=== PATIENT | female | born 1955 | race Caucasian/White ===

== ENCOUNTER 2017-04-14 16:35 | Emergency (ER) | payer OTHER ==
[2017-04-14 16:42] VITALS: BP 151/62; PULSE 97; TEMP 98.1; BMI 22.4
[2017-04-14] MEDS ORDERED: RABIES VACCINE (PCEC)/PF 2.5 UNIT/VIAL IM ONE (17:44)
--- NOTE | 2017-04-14 17:56 | PDOC ---
History of Present Illness - General Chief Complaint: Revisit,Rabies Injection Stated Complaint: RABIES SHOT, REVISIT Time Seen by Provider: 04/14/17 17:27 History Source: Patient Exam Limitations: No Limitations - History of Present Illness Initial Comments: 04/14/17 17:35 62 year old female presents for rabies vaccine. S/p dog bite, treated at [facility] 04/08/17, states was alerted by [place] was never told she needed 3 vaccines. Sent here to continue rabies schedule. Denies symptoms presently. Severity: mild Modifying Factors: improves with: immobilization Associated Symptoms: denies: fever/chills, headaches, malaise, nausea/vomiting Aspirin Received prior to arrival: Yes: no aspirin today. No: unknown Asa Contraindications(Core Measure): No: Active Blding w/i 24 hrs. Beta [place] Given by EMS(Core Measure): No Beta [place] Taken at Home(Core Measure): No Beta [place] Not Indicated at this Time(Core Measure): No Past History - Travel Traveled outside of the country in the last 30 days: No Close contact w/someone who was outside of country & ill: No - Past Medical History Allergies/Adverse Reactions: Allergies Allergy/AdvReac Type Severity Reaction Status Date / Time No Known Allergies Allergy Verified 04/14/17 16:42 - Surgical History Appendectomy: Yes - Psycho/Social/Smoking Cessation Hx Suicidal Ideation: No Smoking History: Never smoked Information on smoking cessation initiated: No Review of Systems - Review of Systems Able to Perform ROS?: Yes Is the patient limited Mongolian proficient: No Constitutional: No: Chills, Fever HEENTM: No: Eye Pain, Double Vision, Tinnitus, Throat Swelling, Mouth Pain Respiratory: No: Stridor, Wheezing Cardiac (ROS): No: Chest Pain, Syncope : No: Dysuria, Discharge, Testicular Mass Musculoskeletal: No: Back Pain, Gout Integumentary: No: Change in Color, Lesions Neurological: No: Numbness, Tingling *Physical Exam - Vital Signs Last Vital Signs Temp Pulse Resp BP Pulse Ox 98.1 F 97 H 18 151/62 98 04/14/17 16:38 04/14/17 16:38 04/14/17 16:38 04/14/17 16:38 04/14/17 16:38 - Physical Exam General Appearance: Yes: Nourished. No: Appropriately Dressed, Apparent Distress HEENT: positive: EOMI, LEONEL, TMs Normal, Pharynx Normal Neck: negative: Supple, Lymphadenopathy (R) Respiratory/Chest: positive: Lungs Clear Cardiovascular: positive: Regular Rhythm, Regular Rate, S1, S2 Medical Decision Making - Medical Decision Making 04/14/17 17:57 62 year old female here for rabies vaccine given rabies vaccine today instructed to return for day 7 and day 14 vaccines *DC/Admit/Observation/Transfer Diagnosis at time of Disposition: Dog bite of hand Qualifiers: Encounter type: sequela Laterality: left Qualified Code(s): S61.452S - Open bite of left hand, sequela; W54.0XXS - Bitten by dog, sequela - Discharge Dispostion Disposition: HOME Condition at time of disposition: Good Admit: No - Patient Instructions Printed Discharge Instructions: DI for Rabies Vaccine Additional Instructions: Please return to hospital April 15, and April 22, 2017 for rabies vaccine. Wound care as previously directed
== END 2017-04-14 18:04 | disposition home or self-care (01) ==
LOC: JERFT 16:35
PROC: 3E0234Z Introduction of Serum, Toxoid and Vaccine into Muscle, Percutaneous Approach (ICD-10-PCS; principal; 2017-04-14)
DX: Z23 Encounter for immunization (principal)
CPT/HCPCS: 90675; 99281-25

== ENCOUNTER 2017-04-15 17:08 | Emergency (ER) | payer SELFPAY ==
[2017-04-15 17:12] VITALS: BP 128/75; PULSE 97; TEMP 99; BMI 22.4
[2017-04-15] MEDS ORDERED: RABIES VACCINE (PCEC)/PF 2.5 UNIT/VIAL IM ONE (17:49)
--- NOTE | 2017-04-15 18:02 | PDOC ---
History of Present Illness - General Chief Complaint: Revisit,Rabies Injection Stated Complaint: REVISIT, RABIES VACCINE Time Seen by Provider: 04/15/17 17:33 History Source: Patient Exam Limitations: No Limitations - History of Present Illness Initial Comments: 04/15/17 18:02 62-year-old female presents for her third rabies vaccination. Patient is on day 7 of the schedule. Patient is no complaints presently. Associated Symptoms: reports: denies symptoms Past History - Past Medical History Allergies/Adverse Reactions: Allergies Allergy/AdvReac Type Severity Reaction Status Date / Time No Known Allergies Allergy Verified 04/15/17 17:12 Home Medications: Ambulatory Orders NK [No Known Home Medication] 04/14/17 Other medical history: NONE - Surgical History Appendectomy: Yes - Psycho/Social/Smoking Cessation Hx Suicidal Ideation: No Smoking History: Never smoked Hx Alcohol Use: No Drug/Substance Use Hx: No Substance Use Type: None Patient Lives Alone: No Review of Systems - Review of Systems Able to Perform ROS?: Yes Constitutional: No: Symptoms Reported HEENTM: No: Symptoms Reported Respiratory: No: Symptoms reported Cardiac (ROS): No: Symptoms Reported ABD/GI: No: Symptoms Reported Musculoskeletal: No: Symptoms Reported Integumentary: No: Symptoms Reported Neurological: No: Symptoms reported *Physical Exam - Vital Signs Last Vital Signs Temp Pulse Resp BP Pulse Ox 99.0 F 97 H 20 128/75 98 04/15/17 17:10 04/15/17 17:10 04/15/17 17:10 04/15/17 17:10 04/15/17 17:10 - Physical Exam General Appearance: Yes: Nourished, Appropriately Dressed. No: Apparent Distress Integumentary: positive: Normal Color, Warm, Moist Neurologic: positive: Motor Strength 5/5 (ambulatory) Medical Decision Making - Medical Decision Making 04/15/17 18:11 Patient ordered for third injection of rabies vaccine. Patient given 2.5 mg IM. patient be discharged to return on 04/22 *DC/Admit/Observation/Transfer Diagnosis at time of Disposition: Need for rabies vaccination - Discharge Dispostion Disposition: HOME Condition at time of disposition: Good - Patient Instructions Printed Discharge Instructions: DI for Rabies Vaccine Additional Instructions: Please return in 04/22. Last vaccination for rabies.
== END 2017-04-15 18:24 | disposition home or self-care (01) ==
LOC: JERFT 17:08
PROC: 3E0234Z Introduction of Serum, Toxoid and Vaccine into Muscle, Percutaneous Approach (ICD-10-PCS; principal; 2017-04-15)
DX: Z20.3 Contact with and (suspected) exposure to rabies (principal)
CPT/HCPCS: 90675; 99281-25

== ENCOUNTER 2017-04-22 15:08 | Emergency (ER) | payer SELFPAY ==
[2017-04-22 15:12] VITALS: BP 114/66; PULSE 73; TEMP 98; BMI 21.6
[2017-04-22] MEDS ORDERED: RABIES VACCINE (PCEC)/PF 2.5 UNIT/VIAL IM ONE (15:14)
--- NOTE | 2017-04-22 15:21 | PDOC ---
History of Present Illness - General Chief Complaint: Revisit,Rabies Injection Stated Complaint: FOLLOW-UP Time Seen by Provider: 04/22/17 15:13 Exam Limitations: No Limitations - History of Present Illness Initial Comments: 04/22/17 15:21 Patient here for #4/4 rabies vaccine. Patient states has had no fever or discomfort to the left hand. Patient did have corrective surgery done yesterday at [facility] and denies any complications. Patient has follow up in 6 weeks with a surgeon. Timing/Duration: reports: other Severity: Yes: moderate Location: reports: hands Respiratory Risk Factors: reports: other Associated Symptoms: reports: denies symptoms Past History - Past Medical History Allergies/Adverse Reactions: Allergies Allergy/AdvReac Type Severity Reaction Status Date / Time No Known Allergies Allergy Verified 04/22/17 15:12 Home Medications: Ambulatory Orders NK [No Known Home Medication] 04/14/17 - Surgical History Appendectomy: Yes - Psycho/Social/Smoking Cessation Hx Anxiety: No Suicidal Ideation: No Smoking History: Never smoked Hx Alcohol Use: No Drug/Substance Use Hx: No Substance Use Type: None Patient Lives Alone: No Lives with/in: spouse/SO Review of Systems - Review of Systems Able to Perform ROS?: Yes Constitutional: No: Symptoms Reported HEENTM: No: Symptoms Reported Musculoskeletal: No: Symptoms Reported Integumentary: No: Symptoms Reported Neurological: No: Symptoms reported *Physical Exam - Vital Signs Last Vital Signs Temp Pulse Resp BP Pulse Ox 98.0 F 73 20 114/66 97 04/22/17 15:09 04/22/17 15:09 04/22/17 15:09 04/22/17 15:09 04/22/17 15:09 - Physical Exam General Appearance: Yes: Nourished, Appropriately Dressed. No: Apparent Distress Extremity: positive: Normal Capillary Refill Integumentary: positive: Normal Color, Warm, Moist (left fingertips. Cast and sling in place) Neurologic: positive: Motor Strength 5/5 (moving fingers actively) Medical Decision Making - Medical Decision Making 04/22/17 15:26 Patient here for #4/4 previous vaccination. Patient is to follow-up with her surgeon who performed corrected surgery yesterday and 6 weeks. Patient will be discharged home. *DC/Admit/Observation/Transfer Diagnosis at time of Disposition: Need for rabies vaccination - Discharge Dispostion Disposition: HOME Condition at time of disposition: Good - Patient Instructions Printed Discharge Instructions: DI for Rabies Vaccine Additional Instructions: Please follow up with the surgeon in 6 weeks.
== END 2017-04-22 15:29 | disposition home or self-care (01) ==
LOC: JERFT 15:08
DX: Z20.3 Contact with and (suspected) exposure to rabies (principal)
CPT/HCPCS: 90675; 99281-25